=== PATIENT | male | born 2005 | race Two or more races ===

== ENCOUNTER 2024-10-19 03:05 | Emergency (ER) | payer SELFPAY ==
[2024-10-19] VITALS (12 sets, daily range): BP systolic 77–131; BP diastolic 42–80; PULSE 77–82; RESP 16–18; TEMP 36.6–36.8; O2SAT 89–100; BMI 23.3
--- NOTE | 2024-10-19 05:00 | EDNOTE_ITS ---
ED Alcohol RME/HPI General Chief Complaint: Alcohol Stated Complaint: ETOH Time Seen by Provider: 10/19/24 04:33 Arrival date/time: 10/19/24 03:05 RME / HPI RME / HPI narrative: This section includes all my notes and documentations, including HPI, PE, and ED course. Serafin Xie MD HPI: 19 y/o male BIBA from home with alcohol intoxication and unresponsive. Per EMS, patient was not wanted at home by family. No other complaints. ROS: All negative except as documented in HPI. Physical Exam: General: Unresponsive. Eyes:? Conjunctivae and lids clear.? EOMI.? PERRL. ENT:? No signs of head trauma. Neck:? Supple.? Heart:? RRR.? Lungs:? No respiratory distress.? Good air movement.? No rhonchi, wheezing, rales.?? Abdomen:? Soft and nontender.? Normal bowel sounds.? No distension.? No rebound or guarding.?? Back:? No CVA tenderness.?? Legs:? No clubbing, cyanosis, edema.? Skin:? Warm and dry.?? Neuro:? Alert and oriented X 3.? Cranial Nerves II-XII grossly intact.? No peripheral motor deficits. I reviewed EMS notes. I ordered IV fluid and diagnostic tests. At 6 AM on 10/19/2024, the care of the patient was transferred to Dr. Sánchez. Serafin Xie MD Related Data Home Medications ?Medication ?Instructions ?Recorded ?Confirmed No Known Home Medications 09/29/18 0606/18 Allergies Allergy/AdvReac Type Severity Reaction Status Date / Time No Known Allergies Allergy Verified 09/29/18 21:03 ED Exam Narrative Physical exam: Refer to [facility] Course Quality Measures none Orders Category Date Time Status Sodium Chloride 0.9% 1000 ml [Ns] 1,000 ml Med 10/19/24 05:10 Active IV 999 mls/hr Vital Signs Vital signs: Vital Signs Temperature 98.2 F 10/19/24 03:28 Pulse Rate 77 10/19/24 03:28 Respiratory Rate 18 10/19/24 03:28 Blood Pressure 105/67 10/19/24 03:28 Pulse Oximetry (%) 96 10/19/24 03:28 Oxygen Delivery Method Room Air 10/19/24 03:28 Discharge Plan Prescriptions/Referrals Prescriptions/Med Rec: No Action No Known Home Medications Problem List Clinical Impression: Alcohol intoxication Patient/Caregiver Discharge Instructions Print Language: Upper Sorbian Alcohol MDM Narrative MDM Narrative: Scribe Attestation: I, Hilary Urrutia, am scribing for and in the presence of Dr. Xie. Provider Notation: Although this document has been carefully reviewed, there may still be some phonetic and other typographical errors.? These errors are purely grammatical due to imperfections in the software program and should not be construed in any way to? compromise the substance of the patient's medical care during this visit. 19 y/o male BIBA from home with alcohol intoxication and unresponsive. Per EMS, patient was not wanted at home by family. No other complaints. Patient data External records reviewed:: [facility] previous records (Reviewed prior ED records fro m 07/12/23. Patient was seen for Closed head injury.) and EMS form Clinical information provided by:: patient Social determinants that could affect healthcare access:: alcohol use Patient has the following chronic illnesses:: None reported How is presenting disease/condition affected by chronic disease/condition?: no chronic disease Evaluation data The following diagnostics were reviewed and interpreted by me:: lab results Lab and/or radiology exams considered but not ordered:: None Interpretation Summary: Diagnostic tests are pending. Medications / Prescriptions Medications or Prescriptions considered but not ordered:: None Medication administrations:: Medication Administration History Sodium Chloride (Ns) 1,000 mls @ 999 mls/hr IV .Q1H1M ONE Stop: 10/19/24 06:10 Last Admin: 10/19/24 05:12 Dose: 999 mls/hr Documented By: I ordered IV fluid. Consultations Consultation(s) initiated? (list below): No Diagnosis Differential diagnosis alcohol: alcohol withdrawal delirium, hypomagnesemia, alcohol intoxication, alcohol ketoacidosis, alcohol withdrawal syndrome and alcohol withdrawal seizure Most likely diagnosis given after review of the tests above:: Alcohol intoxication Admission Indicated Admission indicated?: not indicated Explain why admission is indicated or not indicated:: Diagnostic tests are pending. Admission Request Was there a request for admission?: No Disposition Plan Disposition Plan: other (specify) (Signed-out to Dr. Sánchez at 6 AM.)
[2024-10-19] MEDS: SODIUM CHLORIDE 0.9% 1000 ML 1,000 ML 999 ML IV ×3 (05:12→05:58)
--- NOTE | 2024-10-19 06:18 | EDNOTE_ITS ---
Emergency Room Addendum Addendum Narrative: 0600: Care assumed from Dr. Xie, the previous shift emergency physician. Past medical, surgical, social and family history reviewed. Vitals and home medications reviewed. I will assume the care of the patient at this time, pending diagnostic tests and final disposition. Please refer to the emergency department record for history and examination from initial visit.? Physical exam by me shows patient under no acute distress at this time. 0823: Head CT is negative. Plan for discharged after labs are back and negative. 0956: Labs are unremarkable. Patient remains clinically stable throughout the emergency department visit. Re-assessment at the time of disposition demonstrates that the patient is in no acute distress. We reviewed all the results, analysis, and treatment plans. Patient is amenable to discharge. Strict return precautions were outlined. Patient was discharged in stable condition. Diagnoses: - Alcohol intoxication Results Objective Laboratory: Laboratory Last Values WBC 8.5 Thou/mm3 (4.5-11.0) 10/19/24 06:20 RBC 4.83 Miln/mm3 (4.50-5.90) 10/19/24 06:20 Hgb 13.3 g/dL (13.5-16.0) L 10/19/24 06:20 Hct 38.5 % (41.0-53.0) L 10/19/24 06:20 MCV 80 fL (80-100) 10/19/24 06:20 MCH 27.5 pg (25.0-35.0) 10/19/24 06:20 MCHC 34.5 g/dl (31.0-37.0) 10/19/24 06:20 RDW Std Deviation 37.6 fL (35.1-43.9) 10/19/24 06:20 Plt Count 194 Thou/mm3 (140-440) 10/19/24 06:20 Neut % (Auto) 61 % (37-80) 10/19/24 06:20 Lymph % (Auto) 31 % (10-50) 10/19/24 06:20 Norman % (Auto) 6 % (0-12) 10/19/24 06:20 Eos % (Auto) 2 % (0-10) 10/19/24 06:20 Baso % (Auto) 0 % (0-2.5) 10/19/24 06:20 Neut # (Auto) 5.1 Thou/mm3 (1.8-7.7) 10/19/24 06:20 Lymph # (Auto) 2.6 Thou/mm3 (1.0-4.8) 10/19/24 06:20 Norman # (Auto) 0.5 Thou/mm3 (0.0-0.8) 10/19/24 06:20 Eos # (Auto) 0.2 Thou/mm3 (0.0-0.5) 10/19/24 06:20 Baso # (Auto) 0.0 Thou/mm3 (0.0-0.2) 10/19/24 06:20 Immature Gran # (Auto) 0.04 Thou/mm3 (0.00-0.00) H 10/19/24 06:20 Absolute Nucleated RBC 0.00 Thou/mm3 (0.00-0.00) 10/19/24 06:20 Immature Gran % 1 % (0-0) H 10/19/24 06:20 Nucleated RBC % 0 /100 WBC (0) 10/19/24 06:20 Sodium 146 mMol/L (136-145) H 10/19/24 06:20 Potassium 4.2 mMol/L (3.4-5.1) 10/19/24 06:20 Chloride 111 mMol/L (98-107) H 10/19/24 06:20 Carbon Dioxide 25.9 mMol/L (20.0-31.0) 10/19/24 06:20 Anion Gap 9 (7-16) 10/19/24 06:20 BUN 7 mg/dL (9-23) L 10/19/24 06:20 Creatinine 0.7 mg/dL (0.6-1.3) 10/19/24 06:20 Estim Creat Clear Calc 151.9 mL/min (>60) 10/19/24 06:20 eGFR > 60 See Note (60-) 10/19/24 06:20 BUN/Creatinine Ratio 10 Ratio (12-20) L 10/19/24 06:20 Glucose 87 mg/dL (74-106) 10/19/24 06:20 Calculated Osmolality 287 (275-295) 10/19/24 06:20 Calcium 8.1 mg/dL (8.3-10.6) L 10/19/24 06:20 Corrected Calcium 8.1 mg/dL (8.5-10.1) L 10/19/24 06:20 Magnesium 2.1 mg/dL (1.6-2.6) 10/19/24 06:20 Total Bilirubin 0.3 mg/dL (0.3-1.2) 10/19/24 06:20 Direct Bilirubin 0.1 mg/dL (0.0-0.3) 10/19/24 06:20 AST 17 U/L (0-34) 10/19/24 06:20 ALT 15 U/L (10-49) 10/19/24 06:20 Alkaline Phosphatase 54 U/L (46-116) 10/19/24 06:20 Total Protein 6.0 gm/dL (5.7-8.2) 10/19/24 06:20 Albumin 4.1 gm/dL (3.5-5.0) 10/19/24 06:20 Globulin 1.9 gm/dL (2.3-3.5) L 10/19/24 06:20 Albumin/Globulin Ratio 2.2 (1.2-2.2) 10/19/24 06:20 Amylase 27 U/L (30-118) L 10/19/24 06:20 Lipase 25 U/L (12-53) 10/19/24 06:20 Salicylates < 3.0 mg/dL 10/19/24 06:20 Acetaminophen < 2.0 mcg/mL (10.0-20.0) L 10/19/24 06:20 Ethyl Alcohol 166.7 mg/dL (0-10.0) H 10/19/24 06:20 Imaging: Procedure(s): CT head/brain wo [facility] Accession Number(s): [id number] cc: Edis Sánchez MD; Jacinto Yin MD; NO PRIMARY/FAMILY,PHYSICIAN~ Examination: CT brain head without contrast. 2-D sagittal coronal reconstructions Date and time of exam:October 19, 2024, 0651 hours Comparison July 12, 2023 INDICATIONS: Patient fell today with injury to the head, head pain CTDI: vol (mGy):52 DLP: (mGycm):1058 Technique: Multiple CT axial sections of the brain have been obtained, 5 mm slice thickness. Contrast has not been administered. 2-D sagittal, coronal reconstructions have been obtained Low dose protocols were performed. One or more of the following dose reduction techniques were used; automated exposure control, adjustment of the mA and/or KV according to patient size, use of iterative reconstruction technique. Findings: No significant ventricular enlargement. Intra-axial or extra-axial hemorrhage density is not seen. No mass effect or midline shift Basal cisterns are not remarkable. Fourth ventricle is midline. Cranial vault intact. Impression: Negative for acute hemorrhage, mass effect or midline shift Dictated By: Jacinto Yin MD
--- NOTE | 2024-10-19 06:23 | XR_ITS ---
Examination: CT brain head without contrast. 2-D sagittal coronal reconstructions Date and time of exam:October 19, 2024, 0651 hours Comparison July 12, 2023 INDICATIONS: Patient fell today with injury to the head, head pain CTDI: vol (mGy):52 DLP: (mGycm):1058 Technique: Multiple CT axial sections of the brain have been obtained, 5 mm slice thickness. Contrast has not been administered. 2-D sagittal, coronal reconstructions have been obtained Low dose protocols were performed. One or more of the following dose reduction techniques were used; automated exposure control, adjustment of the mA and/or KV according to patient size, use of iterative reconstruction technique. Findings: No significant ventricular enlargement. Intra-axial or extra-axial hemorrhage density is not seen. No mass effect or midline shift Basal cisterns are not remarkable. Fourth ventricle is midline. Cranial vault intact. Impression: Negative for acute hemorrhage, mass effect or midline shift
--- NOTE | 2024-10-19 06:23 | XR_ITS ---
Examination: CT cervical spine without contrast 2-D sagittal reconstructions 2-D coronal reconstructions 3-D reconstructions. Exam date and time:October 19, 2024, 0651 hours INDICATIONS: Patient fell today with injury to the neck, neck pain CTDI:vol (mGy) 10 DLP: (mGycm) 217 Technique: Multiple 2 mm axial sections of the cervical spine have been obtained. The coronal and sagittal reconstructions have been obtained. 3-D reconstructions have been obtained. Low dose protocols were performed. One or more of the following dose reduction techniques were used; automated exposure control, adjustment of the mA and/or KV according to patient size, use of iterative reconstruction technique. Findings: Axial sections demonstrate intact base of the skull. C1 exhibit satisfactory relationship to the odontoid. No acute cervical vertebral body fracture seen. Alignment posterior spinous processes satisfactory. Impression: No acute cervical fracture.
[2024-10-19 07:42] LABS: Basophils % (Auto) 0 % (0-2.5); Eosinophils # (Auto) 0.2 Thou/mm3 (0.0-0.5); Eosinophils % (Auto) 2 % (0-10); Hematocrit 38.5 % (41.0-53.0); Hemoglobin 13.3 g/dL (13.5-16.0); Immature Granulocytes % (Auto) 1 % (0-0); Immature Granulocytes Auto 0.04 Thou/mm3 (0.00-0.00); Lymphocytes # (Auto) 2.6 Thou/mm3 (1.0-4.8); Lymphocytes % (Auto) 31 % (10-50); Mean Corpuscular HGB Conc 34.5 g/dl (31.0-37.0); Mean Corpuscular Hemoglobin 27.5 pg (25.0-35.0); Mean Corpuscular Volume 80 fL (80-100); Monocytes # (Auto) 0.5 Thou/mm3 (0.0-0.8); Monocytes % (Auto) 6 % (0-12); Neutrophils # (Auto) 5.1 Thou/mm3 (1.8-7.7); Neutrophils % (Auto) 61 % (37-80); Nucleated Red Blood Cell % 0 /100 WBC (0); Platelet Count 194 Thou/mm3 (140-440); RDW Standard Deviation 37.6 fL (35.1-43.9); Red Blood Count 4.83 Miln/mm3 (4.50-5.90); White Blood Count 8.5 Thou/mm3 (4.5-11.0)
[2024-10-19 08:21] LABS: Acetaminophen < 2.0 mcg/mL (10.0-20.0); Alanine Aminotransferase 15 U/L (10-49); Albumin, Serum 4.1 gm/dL (3.5-5.0); Albumin/Globulin Ratio 2.2 (1.2-2.2); Alcohol, Blood Medical 166.7 mg/dL (0-10.0); Alkaline Phosphatase 54 U/L (46-116); Amylase 27 U/L (30-118); Anion Gap 9 (7-16); Aspartate Amino Transferase 17 U/L (0-34); BUN/Creatinine Ratio 10 Ratio (12-20); Bilirubin,Direct 0.1 mg/dL (0.0-0.3); Bilirubin,Total 0.3 mg/dL (0.3-1.2); Blood Urea Nitrogen 7 mg/dL (9-23); Calcium 8.1 mg/dL (8.3-10.6); Calcium (Corrected) 8.1 mg/dL (8.5-10.1); Carbon Dioxide 25.9 mMol/L (20.0-31.0); Chloride 111 mMol/L (98-107); Creatinine (Component) 0.7 mg/dL (0.6-1.3); Estimated Creatinine Clearance 151.9 mL/min (>60); Globulin 1.9 gm/dL (2.3-3.5); Glucose 87 mg/dL (74-106); Lipase 25 U/L (12-53); Magnesium 2.1 mg/dL (1.6-2.6); Osmolality,Calculated 287 (275-295); Potassium 4.2 mMol/L (3.4-5.1); Salicylate < 3.0 mg/dL; Sodium 146 mMol/L (136-145); eGFR > 60 See Note
[2024-10-19 09:13] LABS: Amphetamine/Methamp Scrn,U Negative (Negative); Barbiturate Screen,Urine Negative (Negative); Benzodiazepines Screen,Urine Negative (Negative); Benzoylecgonine Screen, Ur Negative (Negative); Fentanyl Screen,Urine Negative (Negative); Opiate Screen,Urine Negative (Negative); THC Screen,Urine Negative (Negative)
== END 2024-10-19 10:11 | disposition home or self-care (01) ==
PROVIDERS: Emergency Provider Emergency Medicine
DX: F10.129 Alcohol abuse with intoxication, unspecified (principal); Y90.9 Presence of alcohol in blood, level not specified; S19.9XXA Unspecified injury of neck, initial encounter; W19.XXXA Unspecified fall, initial encounter; S09.90XA Unspecified injury of head, initial encounter
CPT/HCPCS: 36415; 70450; 72125; 80053; 80307; 80320; 80329; 82150; 82248; 83690; 83735; 85025; 96360; 96361; 99284; J7030; G0480